=== PATIENT | female | born 1950 | race Caucasian/White ===

== ENCOUNTER → 2020-03-23 | Outpatient (CLI) | payer MEDICARE, OTHER ==
--- NOTE | 2020-03-25 19:34 | NM ---
EXAM DESCRIPTION: Hepatobiliar w/CCK: Nuclear Medicine. CLINICAL HISTORY: ABDOMINAL PAIN COMPARISON: Ultrasound abdomen February 20 TECHNIQUE: Patient was given 8.1 mCi of technetium 99 M mebrofenin (Choletec) radiopharmaceutical IV. Anterior gamma camera images were obtained of the right upper quadrant at 5 minute intervals for 1 hour . The patient was then given 1.4 mcg CCK IV infusion over 30-minute interval. Gallbladder ejection fraction was evaluated by measuring change in radioactivity in the gallbladder, over 30 min interval. FINDINGS: Administration of radiopharmaceutical, immediate visualization of the entire hepatic parenchyma but no significant photopenic or hyperactivity regions. Immediate visualization of the intrahepatic ducts. Gallbladder activity is not seen until 25 minutes after administration. The visualized extrahepatic ducts are negative. After CCK infusion was given IV, patient experienced mild nausea and slight abdominal discomfort. 10 minutes after administration, there was essentially no emptying. From 10 minutes until 20 minutes after IV infusion again, 43% decrease in gallbladder activity. At 30 minutes after IV infusion, decrease in gallbladder activity on the only 32%. IMPRESSION: 1. No intrahepatic biliary obstruction and no obstruction of the common bile duct. 2. Borderline abnormal low gallbladder ejection fraction. This can be due to gallbladder dyskinesia, or chronic or acalculous cholecystitis. Electronically signed by: Gabino Hung MD 03/25/2020 7:33 PM CDT
== END ==
LOC: NM 08:59
PROVIDERS: ATTEND Surgery
DX: K82.9 Disease of gallbladder, unspecified (principal); R10.9 Unspecified abdominal pain
CPT/HCPCS: 78227; A9537

== ENCOUNTER 2020-04-19 05:21 | Day surgery (SDC) | payer MEDICARE, OTHER ==
[2020-04-19] MEDS ORDERED: LACTATED RINGERS 1,000 ML ONE (06:38)
[2020-04-19] MEDS ORDERED: PROPOFOL 200 MG/20 ML VIAL IV ONE (07:00)
[2020-04-19] MEDS ORDERED: LIDOCAINE 1% 10 ML VIAL INJ ONE (07:00)
[2020-04-19] MEDS ORDERED: fentaNYL CITRATE INJ 50 MCG/ML 2 ML AMP ONE (07:51)
--- NOTE | 2020-04-19 09:17 | OP ---
DATE OF PROCEDURE: 04/19/20 PREOPERATIVE DIAGNOSIS: 1. Reflux. 2. History of colonic polyps. POSTOPERATIVE DIAGNOSIS: 1. What appears to be a moderate sized sliding hiatal hernia. 2. Possible gastritis and esophagitis. 3. Normal colon but for a single polyp at about 40 cm, proximal descending colon. PROCEDURE: 1. EGD. 2. Colonoscopy. SURGEON: Barrett Bailey MD COMPLICATIONS: None. PLAN: Discharge. INDICATION: As stated. PROCEDURE: In lateral position with bite block in place, the endoscope was inserted through the posterior pharynx without difficulty and cannulated the esophagus down to the antrum looking into the distal second portion of the duodenum, which is normal. Upon withdrawal, minimal signs of inflammation in the antrum. Biopsy was taken. Upon retroflexion, after observing to make sure it was not just peristalsis, it appeared to be a hiatal hernia, sliding. The defect was probably 7 to 8 cm as it was about 4 times the width of the scope. We see the esophagus above it approximately 6 cm up into the chest. Upon withdrawal, there were some changes at the GE junction, so biopsy was taken to rule out Campoverde's. Otherwise, the esophagus did not show severe evidence of reflux. We will await the biopsies and probably do a confirmatory study on the hiatal hernia and have her followup in the office. #[id number] cc: Annemarie Laughlin MD [facility], [place]
[2020-04-19 09:41] VITALS: TEMP 96.6
[2020-04-19 09:42] VITALS: BP 125/85; O2SAT 100
== END 2020-04-19 09:29 | disposition home or self-care (01) ==
LOC: AMB 05:21
PROVIDERS: ATTEND Surgery
DX: Z12.11 Encounter for screening for malignant neoplasm of colon (principal); D12.4 Benign neoplasm of descending colon; K31.89 Other diseases of stomach and duodenum; K44.9 Diaphragmatic hernia without obstruction or gangrene; K22.70 Barrett's esophagus without dysplasia; K29.70 Gastritis, unspecified, without bleeding; K21.9 Gastro-esophageal reflux disease without esophagitis; K58.9 Irritable bowel syndrome, unspecified; I10 Essential (primary) hypertension; Z86.010 Personal history of colon polyps; Z79.899 Other long term (current) drug therapy
CPT/HCPCS: 00813; 43239; 45380; 88305; J3010; J3490; J7120